=== PATIENT | male | born 1995 | race Caucasian/White ===

== ENCOUNTER 2018-01-25 23:09 | Inpatient (IN) | payer SELFPAY ==
[~2018-01-25] VITALS: Ht 177.8 cm; Wt 62.4 kg
[2018-01-25 23:30] LABS: BASOPHILS % (AUTO) 0.5 % (0.0-2.0); EOSINOPHILS % (AUTO) 0.3 % (1.0-6.0); HEMATOCRIT 42.9 % (41-53); HEMOGLOBIN 15.2 g/dL (13.5-17.5); LYMPHOCYTES # (AUTO) 2.2 K/uL (1.0-4.8); LYMPHOCYTES % (AUTO) 14.8 % (22.0-44.0); MEAN CORPUSCULAR HEMOGLOBIN 32.5 pg (26.0-34.0); MEAN CORPUSCULAR HGB CONC 35.4 G/dL (31.0-37.0); MEAN CORPUSCULAR VOLUME 92 fL (80-100); MONOCYTES # (AUTO) 0.8 K/uL (0.1-1.0); MONOCYTES % (AUTO) 5.5 % (2.0-9.0); NEUTROPHILS # (AUTO) 11.9 K/uL (1.8-7.7); NEUTROPHILS % (AUTO) 78.9 % (40.0-70.0); PLATELET COUNT (AUTO) 298 K/uL (150-450); RED BLOOD CELL COUNT(AUTO) 4.67 MIL/uL (4.50-5.90); RED CELL DISTRIBUTION WIDTH 13.2 % (11.5-14.5)
[2018-01-25] MEDS ORDERED: LEVALBUTEROL HCL 1.25 MG/0.5 ML NEB SOLUTION NEB ONE (23:30)
[2018-01-25 23:45] LABS: ANION GAP 13 mmol/L (8-16); CALCIUM, TOTAL 8.6 mg/dL (8.8-10.5); CARBON DIOXIDE 24 mmol/L (22-29); CHLORIDE 103 mmol/L (98-107); CREATININE 1.04 mg/dL (0.60-1.30); GLOMERULAR FILTR. RATE CALC > 60 mL/min (>60); GLUCOSE,RANDOM 97 mg/dL (70-110); POTASSIUM 3.3 mmol/L (3.5-5.1); SODIUM SERUM 140 mmol/L (136-145); UREA NITROGEN, BLOOD 12 mg/dL (7-18)
[2018-01-25 23:46] LABS: SALICYLATE 2.8 mg/dL (2.8-20.0)
[2018-01-25 23:51] LABS: ALANINE AMINOTRANSFERASE 23 U/L (12-78); ALBUMIN 4.7 g/dL (3.4-5.0); ALKALINE PHOSPHATASE 78 U/L (46-116); ASPARTATE AMINOTRANSFERASE 26 U/L (15-37); BILIRUBIN,TOTAL 0.5 mg/dL (0.1-1.0); TOTAL PROTEIN, SERUM 7.4 g/dL (6.4-8.2)
[2018-01-25 23:52] LABS: ACETAMINOPHEN < 2 mcg/mL (10-30)
[2018-01-26 03:54] LABS: AMPHET/METH SCREEN,URINE NEGATIVE (NEGATIVE); BARBITURATE SCREEN, URINE NEGATIVE (NEGATIVE); BENZODIAZEPINES SCREEN,URINE NEGATIVE (NEGATIVE); CANNABINOID SCREEN,URINE POSITIVE (NEGATIVE); COCAINE SCREEN,URINE NEGATIVE (NEGATIVE); METHADONE SCREEN, URINE NEGATIVE (NEGATIVE); OPIATE SCREEN,URINE NEGATIVE (NEGATIVE)
[2018-01-26 03:56] LABS: PHENCYCLIDINE SCREEN,URINE NEGATIVE (NEGATIVE)
[2018-01-26 03:57] LABS: ACETAMINOPHEN 6 mcg/mL (10-30); ALANINE AMINOTRANSFERASE 23 U/L (12-78); ALBUMIN 4.3 g/dL (3.4-5.0); ALKALINE PHOSPHATASE 73 U/L (46-116); ANION GAP 10 mmol/L (8-16); ASPARTATE AMINOTRANSFERASE 25 U/L (15-37); BILIRUBIN,TOTAL 0.4 mg/dL (0.1-1.0); CALCIUM, TOTAL 8.1 mg/dL (8.8-10.5); CARBON DIOXIDE 26 mmol/L (22-29); CHLORIDE 104 mmol/L (98-107); CREATININE 1.03 mg/dL (0.60-1.30); GLOMERULAR FILTR. RATE CALC > 60 mL/min (>60); GLUCOSE,RANDOM 106 mg/dL (70-110); POTASSIUM 3.6 mmol/L (3.5-5.1); SODIUM SERUM 140 mmol/L (136-145); TOTAL PROTEIN, SERUM 7.1 g/dL (6.4-8.2); UREA NITROGEN, BLOOD 11 mg/dL (7-18)
[2018-01-26] MEDS ORDERED: LORazepam 2 MG TABLET PO PRN (05:15)
[2018-01-26] MEDS ORDERED: HALOPERIDOL 5 MG TABLET PO PRN (05:15)
[2018-01-26] MEDS ORDERED: ZOLPIDEM TARTRATE 10 MG TABLET PO PRN (05:15)
[2018-01-26] MEDS ORDERED: MAG HYDROX/AL HYDROX/SIMETH ES 30 ML SUSPENSION UDCUP PO PRN (08:00)
[2018-01-26] MEDS ORDERED: PETROLATUM,WHITE 71 GM JELLY TP PRN (08:00)
[2018-01-26] MEDS ORDERED: MAGNESIUM HYDROXIDE SUSPENSION 30 ML UDCUP PO PRN (08:00)
[2018-01-26] MEDS ORDERED: ONDANSETRON HCL 4 MG TABLET PO PRN (08:00)
[2018-01-26] MEDS ORDERED: ALBUTEROL SULFATE HFA 90 MCG/PUFF 8 GM INHALER IH PRN (08:00)
[2018-01-26] MEDS ORDERED: ACETAMINOPHEN 325 MG TABLET PO PRN (08:00)
[2018-01-26] MEDS ORDERED: DOCUSATE SODIUM 100 MG CAPSULE PO PRN (08:00)
[2018-01-26] MEDS ORDERED: IBUPROFEN 400 MG TABLET PO PRN (08:00)
[2018-01-26 08:36] VITALS: BP 123/67
[2018-01-26] MEDS: NICOTINE 14 MG/24 HOUR PATCH TD SCH ×2 (09:00→13:01)
[2018-01-26] MEDS: DIVALPROEX SODIUM 500 MG ER TABLET PO SCH (20:57)
[2018-01-26 22:12] VITALS: BP 124/78
[2018-01-27 07:20] LABS: HEMOGLOBIN A1C 5.4 % (4.5-6.2)
[2018-01-27 07:43] LABS: CHOL/HDL RATIO 5.2 (4.2-7.3); THYROID STIMULATING HORMONE 0.59 uIU/mL (0.36-3.74)
[2018-01-27] MEDS: NICOTINE 14 MG/24 HOUR PATCH TD SCH (08:12)
[2018-01-27] MEDS: DIVALPROEX SODIUM 500 MG ER TABLET PO SCH ×2 (08:12→16:12)
[2018-01-27] MEDS: FLUoxetine HCL 20 MG CAPSULE PO SCH (08:12)
[2018-01-27 09:36] VITALS: BP 153/99
[2018-01-27 16:40] VITALS: BP 142/90
[2018-01-28 07:07] LABS: BASOPHILS % (AUTO) 0.7 % (0.0-2.0); EOSINOPHILS % (AUTO) 1.5 % (1.0-6.0); HEMATOCRIT 41.9 % (41-53); HEMOGLOBIN 14.8 g/dL (13.5-17.5); LYMPHOCYTES # (AUTO) 2.2 K/uL (1.0-4.8); MEAN CORPUSCULAR HEMOGLOBIN 32.4 pg (26.0-34.0); MEAN CORPUSCULAR HGB CONC 35.4 G/dL (31.0-37.0); MEAN CORPUSCULAR VOLUME 92 fL (80-100); MONOCYTES # (AUTO) 0.5 K/uL (0.1-1.0); MONOCYTES % (AUTO) 8.6 % (2.0-9.0); NEUTROPHILS # (AUTO) 3.2 K/uL (1.8-7.7); NEUTROPHILS % (AUTO) 53.2 % (40.0-70.0); PLATELET COUNT (AUTO) 282 K/uL (150-450); RED BLOOD CELL COUNT(AUTO) 4.57 MIL/uL (4.50-5.90); RED CELL DISTRIBUTION WIDTH 13.2 % (11.5-14.5)
[2018-01-28] MEDS: NICOTINE 14 MG/24 HOUR PATCH TD SCH (10:22)
[2018-01-28] MEDS: DIVALPROEX SODIUM 500 MG ER TABLET PO SCH ×2 (10:22→16:08)
[2018-01-28] MEDS: FLUoxetine HCL 20 MG CAPSULE PO SCH (10:22)
[2018-01-28] MEDS ORDERED: FLUO-191 PO (11:28)
[2018-01-28] MEDS ORDERED: DIVA500T52 PO (11:28)
[2018-01-28 13:31] VITALS: BP 124/74
[2018-01-28 16:00] VITALS: BP 137/92
== END 2018-01-28 16:20 | disposition home or self-care (01) | DRG 881 ==
LOC: EMS 23:11 → AHU 01-26 05:59 → 3EC 01-26 16:50
PROVIDERS: ADMIT Psychiatry & Neurology Psychiatry; ATTEND Psychiatry & Neurology Psychiatry
DX: F32.9 Major depressive disorder, single episode, unspecified (principal); R45.851 Suicidal ideations; D72.829 Elevated white blood cell count, unspecified; E87.6 Hypokalemia; T39.1X2A Poisoning by 4-Aminophenol derivatives, intentional self-harm, initial encounter; F19.10 Other psychoactive substance abuse, uncomplicated; T51.92XA Toxic effect of unspecified alcohol, intentional self-harm, initial encounter; F12.90 Cannabis use, unspecified, uncomplicated; G47.00 Insomnia, unspecified; F17.210 Nicotine dependence, cigarettes, uncomplicated; F41.9 Anxiety disorder, unspecified; Y92.89 Other specified places as the place of occurrence of the external cause; Z71.51 Drug abuse counseling and surveillance of drug abuser
CPT/HCPCS: 83036; 84443; 93005; 99291; G0480; G0481

== ENCOUNTER 2018-02-14 23:30 | Inpatient (IN) | payer BC ==
[~2018-02-14] VITALS: Ht 177.8 cm; Wt 60.8 kg
[~2018-02-14 23:30] MED LIST: DIVA500T52 PO; FLUO-191 PO
[2018-02-15 03:33] LABS: AMPHET/METH SCREEN,URINE NEGATIVE (NEGATIVE); BARBITURATE SCREEN, URINE NEGATIVE (NEGATIVE); BENZODIAZEPINES SCREEN,URINE NEGATIVE (NEGATIVE); CANNABINOID SCREEN,URINE NEGATIVE (NEGATIVE); COCAINE SCREEN,URINE NEGATIVE (NEGATIVE); METHADONE SCREEN, URINE NEGATIVE (NEGATIVE); OPIATE SCREEN,URINE NEGATIVE (NEGATIVE)
[2018-02-15 03:35] LABS: PHENCYCLIDINE SCREEN,URINE NEGATIVE (NEGATIVE)
[2018-02-15 03:50] LABS: BASOPHILS % (AUTO) 0.3 % (0.0-2.0); EOSINOPHILS % (AUTO) 0.8 % (1.0-6.0); HEMATOCRIT 45.7 % (41-53); HEMOGLOBIN 15.8 g/dL (13.5-17.5); LYMPHOCYTES # (AUTO) 2.9 K/uL (1.0-4.8); LYMPHOCYTES % (AUTO) 20.2 % (22.0-44.0); MEAN CORPUSCULAR HEMOGLOBIN 31.9 pg (26.0-34.0); MEAN CORPUSCULAR HGB CONC 34.7 G/dL (31.0-37.0); MEAN CORPUSCULAR VOLUME 92 fL (80-100); MONOCYTES % (AUTO) 7.3 % (2.0-9.0); NEUTROPHILS # (AUTO) 10.1 K/uL (1.8-7.7); NEUTROPHILS % (AUTO) 71.4 % (40.0-70.0); PLATELET COUNT (AUTO) 299 K/uL (150-450); RED BLOOD CELL COUNT(AUTO) 4.96 MIL/uL (4.50-5.90)
[2018-02-15 04:02] LABS: ANION GAP 7 mmol/L (8-16); CALCIUM, TOTAL 8.5 mg/dL (8.8-10.5); CARBON DIOXIDE 28 mmol/L (22-29); CHLORIDE 104 mmol/L (98-107); CREATININE 0.71 mg/dL (0.60-1.30); GLOMERULAR FILTR. RATE CALC > 60 mL/min (>60); GLUCOSE,RANDOM 96 mg/dL (70-110); POTASSIUM 3.4 mmol/L (3.5-5.1); SODIUM SERUM 139 mmol/L (136-145); UREA NITROGEN, BLOOD 14 mg/dL (7-18)
[2018-02-15 04:09] LABS: ALANINE AMINOTRANSFERASE 22 U/L (12-78); ALBUMIN 3.9 g/dL (3.4-5.0); ALKALINE PHOSPHATASE 66 U/L (46-116); ASPARTATE AMINOTRANSFERASE 24 U/L (15-37); BILIRUBIN,TOTAL 0.4 mg/dL (0.1-1.0); TOTAL PROTEIN, SERUM 6.6 g/dL (6.4-8.2); VALPROIC ACID 25 mcg/mL (50-100)
[2018-02-15] MEDS ORDERED: IBUPROFEN 400 MG TABLET PO PRN (18:30)
[2018-02-15] MEDS ORDERED: LOPERAMIDE HCL 2 MG CAPSULE PO PRN (18:30)
[2018-02-15] MEDS ORDERED: ACETAMINOPHEN 325 MG TABLET PO PRN (18:30)
[2018-02-15] MEDS ORDERED: MAGNESIUM HYDROXIDE SUSPENSION 30 ML UDCUP PO PRN (18:30)
[2018-02-15] MEDS ORDERED: MAG HYDROX/AL HYDROX/SIMETH ES 30 ML SUSPENSION UDCUP PO PRN (18:30)
[2018-02-15 19:00] VITALS: BP 138/82
[2018-02-15] MEDS ORDERED: POTASSIUM CHLORIDE 20 MEQ ER TABLET PO ONE (19:15)
[2018-02-15] MEDS: NICOTINE 21 MG/24 HOUR PATCH TD SCH (19:59)
[2018-02-15] MEDS: ZOLPIDEM TARTRATE 10 MG TABLET PO PRN ×2 (19:59→20:00)
[2018-02-16 00:25] VITALS: BP 130/86
[2018-02-16] MEDS: LORazepam 2 MG TABLET PO PRN ×3 (00:30→19:39)
[2018-02-16] MEDS: NICOTINE 21 MG/24 HOUR PATCH TD SCH (08:46)
[2018-02-16 08:55] VITALS: BP 140/80
[2018-02-16] MEDS ORDERED: NICOTINE 14 MG/24 HOUR PATCH TD SCH (09:00)
[2018-02-16] MEDS: BACITRACIN 28.4 GM OINTMENT TP SCH ×2 (09:00→16:21)
[2018-02-16 09:18] LABS: HEMOGLOBIN A1C 5.5 % (4.5-6.2)
[2018-02-16 10:02] LABS: CHOL/HDL RATIO 5.3 (4.2-7.3); POTASSIUM 3.6 mmol/L (3.5-5.1); THYROID STIMULATING HORMONE 1.06 uIU/mL (0.36-3.74)
[2018-02-16] MEDS: FLUoxetine HCL 20 MG CAPSULE PO SCH (11:17)
[2018-02-16] MEDS: OXcarbazepine 300 MG TABLET PO SCH ×2 (11:17→16:21)
[2018-02-16 16:12] VITALS: BP 121/71
[2018-02-16] MEDS: HALOPERIDOL 5 MG TABLET PO PRN (17:38)
[2018-02-17 06:08] VITALS: BP 104/60
[2018-02-17 09:20] VITALS: BP 112/72
[2018-02-17] MEDS: FLUoxetine HCL 20 MG CAPSULE PO SCH (10:18)
[2018-02-17] MEDS: OXcarbazepine 300 MG TABLET PO SCH ×2 (10:18→16:28)
[2018-02-17] MEDS: NICOTINE 21 MG/24 HOUR PATCH TD SCH (10:21)
[2018-02-17] MEDS: BACITRACIN 28.4 GM OINTMENT TP SCH ×2 (10:22→16:28)
[2018-02-17] MEDS: LORazepam 2 MG TABLET PO PRN (14:10)
[2018-02-17 16:30] VITALS: BP 122/65
[2018-02-17] MEDS: ZOLPIDEM TARTRATE 10 MG TABLET PO PRN (21:20)
[2018-02-18 01:22] VITALS: BP 124/70
[2018-02-18 08:02] LABS: BASOPHILS % (AUTO) 0.6 % (0.0-2.0); EOSINOPHILS % (AUTO) 1.2 % (1.0-6.0); HEMATOCRIT 44.5 % (41-53); HEMOGLOBIN 15.6 g/dL (13.5-17.5); LYMPHOCYTES # (AUTO) 2.4 K/uL (1.0-4.8); LYMPHOCYTES % (AUTO) 27.9 % (22.0-44.0); MEAN CORPUSCULAR HEMOGLOBIN 32.2 pg (26.0-34.0); MEAN CORPUSCULAR HGB CONC 35.1 G/dL (31.0-37.0); MEAN CORPUSCULAR VOLUME 92 fL (80-100); MONOCYTES # (AUTO) 0.8 K/uL (0.1-1.0); NEUTROPHILS # (AUTO) 5.3 K/uL (1.8-7.7); NEUTROPHILS % (AUTO) 61.3 % (40.0-70.0); PLATELET COUNT (AUTO) 302 K/uL (150-450); RED BLOOD CELL COUNT(AUTO) 4.85 MIL/uL (4.50-5.90); RED CELL DISTRIBUTION WIDTH 13.2 % (11.5-14.5)
[2018-02-18 08:14] VITALS: BP 120/72
[2018-02-18] MEDS: OXcarbazepine 300 MG TABLET PO SCH ×2 (08:57→16:36)
[2018-02-18] MEDS: NICOTINE 21 MG/24 HOUR PATCH TD SCH (08:58)
[2018-02-18] MEDS: FLUoxetine HCL 20 MG CAPSULE PO SCH (08:58)
[2018-02-18] MEDS: BACITRACIN 28.4 GM OINTMENT TP SCH ×2 (08:59→16:36)
[2018-02-18] MEDS: LORazepam 2 MG TABLET PO PRN ×2 (13:49→21:24)
[2018-02-18 16:13] VITALS: BP 120/64
[2018-02-18] MEDS: HALOPERIDOL 5 MG TABLET PO PRN (18:53)
[2018-02-18] MEDS: ZOLPIDEM TARTRATE 10 MG TABLET PO PRN (20:38)
[2018-02-19 04:22] VITALS: BP 116/76
[2018-02-19 08:21] VITALS: BP 114/64
[2018-02-19] MEDS: NICOTINE 21 MG/24 HOUR PATCH TD SCH (09:00)
[2018-02-19] MEDS: OXcarbazepine 300 MG TABLET PO SCH (09:34)
[2018-02-19] MEDS: BACITRACIN 28.4 GM OINTMENT TP SCH (09:35)
[2018-02-19] MEDS: FLUoxetine HCL 20 MG CAPSULE PO SCH (09:35)
[2018-02-19] MEDS ORDERED: OXCA300T PO (09:39)
== END 2018-02-19 11:15 | disposition home or self-care (01) | DRG 881 ==
LOC: EMS 23:31 → B2S 02-15 16:24
PROVIDERS: ADMIT Psychiatry & Neurology Psychiatry; ATTEND Psychiatry & Neurology Psychiatry
PROC: 0HQ4XZZ Repair Neck Skin, External Approach (ICD-10-PCS; principal; 2018-02-15)
DX: F32.9 Major depressive disorder, single episode, unspecified (principal); R45.851 Suicidal ideations; F17.210 Nicotine dependence, cigarettes, uncomplicated; D72.829 Elevated white blood cell count, unspecified; E87.6 Hypokalemia; E78.5 Hyperlipidemia, unspecified; F10.10 Alcohol abuse, uncomplicated; F19.10 Other psychoactive substance abuse, uncomplicated; F12.90 Cannabis use, unspecified, uncomplicated; R45.87 Impulsiveness; S51.812A Laceration without foreign body of left forearm, initial encounter; Y90.0 Blood alcohol level of less than 20 mg/100 ml; S11.91XA Laceration without foreign body of unspecified part of neck, initial encounter; W26.0XXA Contact with knife, initial encounter; Y93.89 Activity, other specified; Y92.89 Other specified places as the place of occurrence of the external cause; Z71.51 Drug abuse counseling and surveillance of drug abuser; Z79.899 Other long term (current) drug therapy; Z71.41 Alcohol abuse counseling and surveillance of alcoholic; Y99.8 Other external cause status
CPT/HCPCS: 83036; 84132; 84443; 87081; 99285; G0480